=== PATIENT | female | born 1960 | race Caucasian/White ===

== ENCOUNTER 2016-08-27 08:07 | Day surgery (SDC) | payer OTHER ==
[~2016-08-27 08:07] MED LIST: DIPRIVAN 200 MG/20 ML IV ONE; Kenalog-40 IM ONE; Sensorcaine 0.25% 10 ML IJ ONE; Xylocaine 1% Vial 30 ML PF IJ ONE
[2016-08-27] MEDS ORDERED: Lactated Ringers 1,000 ML IV ONE (08:09)
[2016-08-27] MEDS ORDERED: Lactated Ringers 1,000 ML IV SCH (08:30)
[2016-08-27 08:40] VITALS: BP 161/124; PULSE 81; O2SAT 98
--- NOTE | 2016-08-27 12:43 | XRAY ---
Indication: Left hip injection. Intraoperative fluoroscopy was provided for 25 seconds. Single frontal digital spot image of the left hip demonstrates needle tip projecting over the superior femur head. Small amount of contrast injected for needle tip placement. Correlate with intraoperative findings/report.
--- NOTE | 2016-08-27 13:39 | XRAY ---
25 seconds fluoroscopy time in surgery for left hip injection.
== END 2016-08-27 10:36 | disposition home or self-care (01) ==
LOC: SDC-PAIN 08:07
PROVIDERS: ATTEND Pain Medicine Interventional Pain Medicine
DX: M54.16 Radiculopathy, lumbar region (principal); M48.06 Spinal stenosis, lumbar region; M70.62 Trochanteric bursitis, left hip; Z79.891 Long term (current) use of opiate analgesic
CPT/HCPCS: 20610; 73501; 77002; J2001; J2704; J3301; Q9967

== ENCOUNTER 2016-10-17 17:46 | Emergency (ER) | payer OTHER ==
[2016-10-17] MEDS ORDERED: Compazine 10 MG/2 ML IV ONE (18:14)
[2016-10-17] MEDS ORDERED: Sodium Chloride 0.9% 1000 ML 1,000 ML IV SCH (18:15)
[2016-10-17] MEDS ORDERED: Sodium Chloride 0.9% 500 ML 500 ML IV ONE (18:16)
--- NOTE | 2016-10-17 18:22 | ERPHSYRPT ---
- History of Present Illness Time Seen by Provider: 10/17/16 18:05 Source: patient, family () Exam Limitations: no limitations Patient Subjective Stated Complaint: headache since yesterday. states feels pressure in eyes and back of head. also having some nausea. Triage Nursing Assessment: ambulated to room per self without difficulty. skin w/d, color normal, resp easy. 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 has some droop to left side of mouth when smiling. aleksandra Physician History: patient presents with worst MURRY of life; used to have migraines; this is worse; started yesterday; 04/14; frontal sinuses; retro bulbar on left and post occiput ; light bothers; associated with N& dry heaves; no trauma; no travel ; no exposures; some increased stress as kids and grand kids moved back home.no fever or chills; otherwise healthy; no changes in meds; has hx of hayfever and allergies; no relief with over the counter meds; has an asymetrical smile which states is old Timing/Duration: yesterday (onset at rest), gradual onset, worse (today) Quality: aching, fullness, pressure, throbbing Head Pain Location: frontal (retrobulbar left), occipital Severity of Pain-Max: severe Severity of Pain-Current: severe Recent Head Trauma: no recent headache/trauma Modifying Factors: Improves With: exposure to light (exacerbates) Associated Symptoms: nausea/vomiting, sensitive to light Previous symptoms: different symptoms Allergies/Adverse Reactions: No Known Drug Allergies Allergy (Verified 10/17/16 17:59) Home Medications: Fluoxetine HCl [Prozac] 20 mg PO BID 10/23/15 [History] Buspirone HCl [Buspar] 10 mg PO BID 04/17/16 [History] Diclofenac Sodium [Voltaren] 75 mg PO BID 04/17/16 [History] Gabapentin 400 mg [Neurontin 400 MG] 400 mg PO TID 04/17/16 [History] Hx Tetanus, Diphtheria Vaccination/Date Given: No Hx Influenza Vaccination/Date Given: No Hx Pneumococcal Vaccination/Date Given: No - Review of Systems Constitutional: No Symptoms Eyes: Photophobia, No Eye Pain, No Eye Redness, No Itchy, No Vision Changes, No Double Vision Ears, Nose, & Throat: No Symptoms, Other (sinus pressure) Respiratory: No Cough, No Dyspnea, No Wheezing Cardiac: No Chest Pain, No Palpitations, No Syncope Abdominal/Gastrointestinal: Nausea, Vomiting, No Abdominal Pain, No Diarrhea, No Constipation Genitourinary Symptoms: No Symptoms Musculoskeletal: Arthralgias, No Back Pain, No Neck Pain, No Fall, No Injury Skin: No Symptoms Neurological: Headache, No Dizziness, No Focal Weakness, No Paralysis, No Parasthesia, No Seizure, No Sensory Changes, No Speech Changes, No Vertigo Psychological: No Symptoms Endocrine: No Symptoms Hematologic/Lymphatic: No Symptoms Immunological/Allergic: No Symptoms - Past Medical History Pertinent Past Medical History: Yes Neurological History: No Pertinent History Cardiac History: No Pertinent History Respiratory History: No Pertinent History Endocrine Medical History: No Pertinent History Musculoskeletal History: Degenerative Disk Disease Psycho-Social History: Depression Other Medical History: L hip and knee OA - Past Surgical History Past Surgical History: Yes Female Surgical History: Section Other Surgical History: gastric bypass - Social History Smoking Status: Never smoker Exposure to second hand smoke: Yes Alcohol Use: None Drug Use: none Patient Lives Alone: No Significant Family History: no pertinent family hx - Female History Hx Now: No - Nursing Vital Signs Nursing Vital Signs: Initial Vital Signs Temperature 97.3 F Temperature Source Oral Pulse Rate 80 Respiratory Rate 161 Blood Pressure [] 124/74 Pain Intensity 5 - Physical Exam General Appearance: moderate distress (bad headache), alert Eye Exam: PERRL/EOMI, eyes nml inspection, photophobia, other (fundi benign; no photophobia; ) Ears, Nose, Throat Exam: normal ENT inspection, TMs normal, pharynx normal, moist mucous membranes, other (sinus transillluminate poorly and tender to palpation) Neck Exam: normal inspection, non-tender, supple, full range of motion, No meningismus, No carotid bruit, No JVD, No lymphadenopathy, No thyromegaly Respiratory Exam: normal breath sounds, lungs clear, airway intact, No chest tenderness, No respiratory distress, No crackles/rales, No rhonchi, No wheezing Cardiovascular Exam: regular rate/rhythm, normal heart sounds, normal peripheral pulses, capillary refill 2-3 sec, No murmur Gastrointestinal/Abdominal Exam: soft, normal bowel sounds, No tenderness, No guarding, No rebound, No organomegaly Back Exam: normal inspection, normal range of motion, No CVA tenderness, No vertebral tenderness, No rash Extremity Exam: normal inspection, normal range of motion, pedal edema (chronic) Mental Status Exam: alert, oriented x 3, 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 Exam: normal hearing, normal speech, PERRL, tongue midline, No facial droop , No facial paresthesias, No facial weakness Coordination/Gait Exam: normal finger to nose, normal gait, normal cerebellar function, negative Romberg's sign Motor/Sensory Exam: no motor deficit, no sensory deficit, no pronator drift DTR Exam: knee (R): 4+, knee (L): 4+ Skin Exam: normal color, warm, dry, No rash, No petechiae Lymphatic Exam: No adenopathy SpO2 Interpretation: normal SpO2: 96 Oxygen Delivery: Room Air - Course Nursing assessment & vital signs reviewed: Yes - CT Exams Head CT Interpretation: Negative, Tele-radiologist Report, No/Intracranial Hemorrhag Ordered Tests: Active Orders 24 hr Category Date Time Status IV Insertion STAT Care 10/17/16 18:14 Active Oxygen-ED Only VENTI-MASK 40% Care 10/17/16 19:03 Active Pulse Oximetry (ED) STAT Care 10/17/16 18:14 Active HEAD WITHOUT CONTRAST [CT] Stat Exams 10/17/16 18:14 Taken BMP Stat Lab 10/17/16 18:38 Completed CBC W DIFF Stat Lab 10/17/16 18:38 Completed Medication Summary Generic Name Dose Route Start Last Admin Trade Name Freq PRN Reason Stop Dose Admin Sodium Chloride 1,000 mls @ 100 mls/hr 10/17/16 18:15 10/17/16 18:45 Sodium Chloride 0.9% 1000 Ml IV 11/16/16 18:14 100 mls/hr .Q10H LAURA Administration Discontinued Medications Generic Name Dose Route Start Last Admin Trade Name Freq PRN Reason Stop Dose Admin Hydromorphone HCl 1 mg 10/17/16 19:06 10/17/16 19:13 Hydromorphone 1 Mg/Ml Ampule IV 10/17/16 19:07 1 mg STAT ONE Administration Hydromorphone HCl Confirm 10/17/16 19:10 Hydromorphone 1 Mg/Ml Ampule Administered 10/17/16 19:11 Dose 1 mg .ROUTE .STK-MED ONE Sodium Chloride 500 mls @ 500 mls/hr 10/17/16 18:16 10/17/16 18:45 Sodium Chloride 0.9% 500 Ml IV 10/17/16 19:15 500 mls/hr .Q1H ONE Administration Prochlorperazine Edisylate 10 mg 10/17/16 18:14 10/17/16 18:45 Compazine 10 Mg/2 Ml IV 10/17/16 18:15 10 mg STAT ONE Administration Prochlorperazine Edisylate Confirm 10/17/16 18:41 Compazine 10 Mg/2 Ml Administered 10/17/16 18:42 Dose 10 mg .ROUTE .STK-MED ONE Lab/Rad Data: Laboratory Result Diagrams 10/17/16 18:38 10/17/16 18:38 Laboratory Results 10/17/16 10/17/16 Range/Units 18:38 18:38 WBC 9.5 (4.0-10.5) K/mm3 RBC 4.25 (4.1-5.4) M/mm3 Hgb 12.9 (12.0-16.0) gm/dl Hct 40.4 (35-47) % MCV 95.1 (78-100) fl MCH 30.4 (26-32) pg MCHC 31.9 L (32-36) g/dl RDW 14.2 H (11.5-14.0) % Plt Count 340 (150-450) K/mm3 MPV 9.2 (6-9.5) fl Gran % 70.9 H (36.0-66.0) % Lymphocytes % 19.6 L (24.0-44.0) % Monocytes % 8.4 (0.0-12.0) % Eosinophils % 0.8 (0.00-5.0) % Basophils % 0.3 (0.0-0.4) % Basophils # 0.03 (0-0.4) Sodium 138 (136-145) mEq/L Potassium 3.9 (3.5-5.1) mEq/L Chloride 104 (98-107) mEq/L Carbon Dioxide 25.8 (21-32) mEq/L Anion Gap 12.0 (5-15) MEQ/L BUN 14 (9-20) mg/dL Creatinine 0.87 (0.55-1.30) mg/dl Estimated GFR > 60 ML/MIN Glucose 106 (70-110) MG/DL Calcium 9.1 (8.5-10.1) mg/dL reviewed - Progress Progress: improved (after meds), re-examined (after CT and meds ) Air Movement: good Progress Note: 10/17/16 18:26 at the bedside; will start IV; place on hi flow O2, give fluids; check labs and CT ; medicate and recheck 10/17/16 19:02 recheck and Nausea starting to improve; no change in MURRY; CT repeorted as negative; labs all wnl; at bedside; will place on hi flow O2 and recheck ; if no chane will medicate for pain 10/17/16 19:36 pain now 5/10; will monitor and recheck 10/17/16 20:04 recheck and much improved; pain now 2-3 /10 and ready to go home; findings discussed; instructions given Blood Culture(s) Obtained: No Antibiotics given: No Counseled pt/family regarding: lab results, diagnosis, need for follow-up, rad results - Departure Time of Disposition: 20:04 Departure Disposition: Home Clinical Impression: Headache Condition: Stable Critical Care Time: No Referrals: CHRIS PITTS [Primary Care Provider] - Instructions: Headache Additional Instructions: Follow-up with family doctor as directed. Call for appointment. Return if any problems. If you smoke please stop. Call or follow up with your family doctor for assistance if you need it to stop. Please wear your seatbelt when driving. Have a nice day. Thank you for allowing us to participate in your care today. :o) Dr Chino Bowling
[2016-10-17] MEDS ORDERED: Sodium Chloride 0.9% 1000 ML 1,000 ML ONE (18:41)
[2016-10-17] MEDS ORDERED: Compazine 10 MG/2 ML ONE (18:41)
[2016-10-17 18:43] LABS: BASOPHIL % 0.3 % (0.0-0.4); Eosinophil % 0.8 % (0.00-5.0); Granulocytes % 70.9 % (36.0-66.0); Lymphocytes % 19.6 % (24.0-44.0); Mean Cell Volume 95.1 fl (78-100); Mean Corpuscular Hemoglobin 30.4 pg (26-32); Mean Platelet Volume 9.2 fl (6-9.5); Monocytes % 8.4 % (0.0-12.0); Platelet Count 340 K/mm3 (150-450); Red Blood Count 4.25 M/mm3 (4.1-5.4); Red Cell Distribution Width 14.2 % (11.5-14.0); White Blood Count 9.5 K/mm3 (4.0-10.5)
[2016-10-17 18:53] LABS: BLOOD UREA NITROGEN 14 mg/dL (9-20); CHLORIDE 104 mEq/L (98-107); Carbon Dioxide 25.8 mEq/L (21-32); Glucose 106 MG/DL (70-110); Potassium 3.9 mEq/L (3.5-5.1); SODIUM 138 mEq/L (136-145)
[2016-10-17] MEDS ORDERED: Hydromorphone 1 mg/ml Ampule IV ONE (19:06)
[2016-10-17] MEDS ORDERED: Hydromorphone 1 mg/ml Ampule ONE (19:10)
[2016-10-17 19:50] VITALS: BP 124/74; PULSE 80
[2016-10-17 20:05] VITALS: O2SAT 96
--- NOTE | 2016-10-17 21:34 | XRAY ---
Indication: Severe headache. Multiple contiguous axial images obtained through the head without contrast. Comparison: September 22, 2006. Again normal appearing brain parenchyma, ventricles, and bony calvarium. Visualized paranasal sinuses and mastoid air cells are pneumatized and clear. Impression: Stable normal CT head without contrast exam. CTDI 70.55
== END 2016-10-17 20:17 | disposition home or self-care (01) ==
LOC: ED 17:46
DX: R51 Headache (principal); R11.2 Nausea with vomiting, unspecified; H53.9 Unspecified visual disturbance; Z79.899 Other long term (current) drug therapy
CPT/HCPCS: 36000; 36415; 70450; 80048; 85025; 96360; 96361; 96374; 96375; 99284; 99285; J1170

== ENCOUNTER 2016-10-18 13:08 | Emergency (ER) | payer OTHER ==
[2016-10-18] MEDS ORDERED: Compazine 10 MG/2 ML IV ONE (13:31)
[2016-10-18] MEDS ORDERED: TORAdol 30 mg Injection IV ONE (13:31)
[2016-10-18] MEDS ORDERED: Sodium Chloride 0.9% 1000 ML 1,000 ML IV STA (13:31)
[2016-10-18] MEDS ORDERED: BENADRYL 50 MG/ML IV ONE (13:31)
[2016-10-18 13:32] LABS: VBG BASE EXCESS 1.1 (-2.0-2.0); VBG CARBOXYHEMOGLOBIN 2.6 % T HGB (0.0-6.9); VBG HCO3- 23.6 meq/L (22-28); VBG HEMOGLOBIN 14.6; VBG O2 SATURATION 94.1 (95-100); VBG POTASSIUM 3.6 (3.5-5.1); VBG pH 7.49 (7.32-7.42)
[2016-10-18] MEDS ORDERED: DECADRON 10MG INJ. IV ONE (13:32)
[2016-10-18] MEDS ORDERED: TORAdol 30 mg Injection ONE (13:35)
[2016-10-18] MEDS ORDERED: DECADRON 10MG INJ. ONE (13:35)
[2016-10-18] MEDS ORDERED: BENADRYL 50 MG/ML ONE (13:35)
[2016-10-18] MEDS ORDERED: Sodium Chloride 0.9% 100 ML IVPB 100 ML IV ONE (13:35)
[2016-10-18] MEDS ORDERED: Compazine 10 MG/2 ML ONE (13:35)
[2016-10-18] MEDS ORDERED: Sodium Chloride 0.9% 1000 ML 1,000 ML ONE (13:36)
--- NOTE | 2016-10-18 13:40 | ERPHSYRPT ---
- History of Present Illness Time Seen by Provider: 10/18/16 13:12 Source: patient Patient Subjective Stated Complaint: PT REPORTS N/V/D-STATES SHE HAS ONLY DRY HEAVED TODAY-REPROTS 2 EPISODES OF DIARRHEA-STATES SHE WAS TX LAST NIGHT IN ED FOR HEADACHE-STATES HEADACHE IS BETTER TODAY-REPORTS TINLGING TO BOTH HANDS Triage Nursing Assessment: PT PALE WARM ET DRY-A & O X 3-RESP NONLAOBRED-PUPILS RESPONSIVE-UNEVEN SMILE THAT PT REPORTS IS NORMAL FOR HER-MOVING ALL EXTREMITIES WITH EASE-ABD SOFT ET TENDER TO PALP-DENIES REBOUND TENDERNESS Physician History: CC: nausea hx: 56 y/o patient with hx of arthritis pain syndrome, headaches. Last night in ER with gradual onset severe headache. She had CT head which was neg and normal labs. She improved with O2, compazine, dilaudid. She went home well and went to sleep. Awoke at 1AM and the headache was returning. She has continues slight headache but has dry heaves and mild diarrhea. No fever. Tingling in all extremities. No neck pain. Last headache of this severity was one year. Timing/Duration: yesterday Severity: severe Allergies/Adverse Reactions: No Known Drug Allergies Allergy (Verified 10/18/16 13:18) Home Medications: Fluoxetine HCl [Prozac] 20 mg PO BID 10/23/15 [History] Buspirone HCl [Buspar] 10 mg PO BID 04/17/16 [History] Diclofenac Sodium [Voltaren] 75 mg PO BID 04/17/16 [History] Gabapentin 400 mg [Neurontin 400 MG] 400 mg PO TID 04/17/16 [History] Hx Tetanus, Diphtheria Vaccination/Date Given: No Hx Influenza Vaccination/Date Given: No Hx Pneumococcal Vaccination/Date Given: No Immunizations Up to Date: Yes - Review of Systems Constitutional: Malaise, No Fever Eyes: Photophobia, No Vision Changes Respiratory: No Cough, No Dyspnea Cardiac: No Chest Pain Abdominal/Gastrointestinal: Nausea, Vomiting, Diarrhea, No Abdominal Pain Skin: No Rash Neurological: Headache, Parasthesia (all extremities), No Focal Weakness All Other Systems: Reviewed and Negative - Past Medical History Pertinent Past Medical History: Yes Neurological History: No Pertinent History Cardiac History: No Pertinent History Respiratory History: No Pertinent History Endocrine Medical History: No Pertinent History Musculoskeletal History: Degenerative Disk Disease Psycho-Social History: Depression Other Medical History: L hip and knee OA - Past Surgical History Past Surgical History: Yes Female Surgical History: Section Other Surgical History: gastric bypass - Social History Smoking Status: Never smoker Exposure to second hand smoke: Yes Alcohol Use: None Drug Use: none Patient Lives Alone: No Significant Family History: no pertinent family hx - Female History Hx Now: No - Nursing Vital Signs Nursing Vital Signs: Initial Vital Signs Pulse Rate 88 Respiratory Rate 22 Blood Pressure [Right Arm] 168/80 Pain Intensity 8 - Physical Exam General Appearance: alert Eye Exam: PERRL/EOMI Ears, Nose, Throat Exam: normal ENT inspection, moist mucous membranes Neck Exam: normal inspection, non-tender, supple, No meningismus Respiratory Exam: normal breath sounds, lungs clear Cardiovascular Exam: regular rate/rhythm, No murmur Gastrointestinal/Abdomen Exam: soft, No tenderness, No distention Back Exam: normal inspection, No vertebral tenderness Extremity Exam: normal inspection, normal range of motion Neurologic Exam: alert, oriented x 3, 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, 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 IV 10/18/16 13:33 10 mg STAT ONE Administration Dexamethasone Sodium Phosphate Confirm 10/18/16 13:35 Decadron 10mg Inj. Administered 10/18/16 13:36 Dose 10 mg .ROUTE .STK-MED ONE Diphenhydramine HCl 25 mg 10/18/16 13:31 10/18/16 13:47 Benadryl 50 Mg/Ml IV 10/18/16 13:32 25 mg STAT ONE Administration Diphenhydramine HCl Confirm 10/18/16 13:35 Benadryl 50 Mg/Ml Administered 10/18/16 13:36 Dose 50 mg .ROUTE .STK-MED ONE Sodium Chloride 1,000 mls @ 999 mls/hr 10/18/16 13:31 10/18/16 13:47 Sodium Chloride 0.9% 1000 Ml IV 10/18/16 14:31 999 mls/hr .Q1H1M STA Administration Sodium Chloride Confirm 10/18/16 13:35 Sodium Chloride 0.9% 100 Ml Ivpb Administered 10/18/16 13:36 Dose 100 mls @ ud IV .STK-MED ONE Sodium Chloride Confirm 10/18/16 13:36 Sodium Chloride 0.9% 1000 Ml Administered 10/18/16 13:37 Dose 1,000 mls @ ud .ROUTE .STK-MED ONE Ketorolac Tromethamine 30 mg 10/18/16 13:31 10/18/16 13:48 Toradol 30 Mg Injection IV 10/18/16 13:32 30 mg STAT ONE Administration Ketorolac Tromethamine Confirm 10/18/16 13:35 Toradol 30 Mg Injection Administered 10/18/16 13:36 Dose 30 mg .ROUTE .STK-MED ONE Prochlorperazine Edisylate 10 mg 10/18/16 13:31 10/18/16 13:50 Compazine 10 Mg/2 Ml IV 10/18/16 13:32 10 mg STAT ONE Administration Prochlorperazine Edisylate Confirm 10/18/16 13:35 Compazine 10 Mg/2 Ml Administered 10/18/16 13:36 Dose 10 mg .ROUTE .STK-MED ONE Lab/Rad Data: Laboratory Results 10/18/16 Range/Units 13:30 VBG pH 7.49 H (7.32-7.42) VBG pCO2 at Pat Temp 31 L (42-55) mm/Hg VBG pO2 at Pat Temp 55 H (25-40) mm/Hg VBG HCO3 23.6 (22-28) meq/L VBG O2 Sat (Consuelo) 94.1 L (95-100) VBG Base Excess 1.1 (-2.0-2.0) VBG Hemoglobin 14.6 VBG Carboxyhemoglobin 2.6 (0.0-6.9) % T HGB POC Potassium 3.6 (3.5-5.1) - Progress Progress Note: 10/18/16 13:40 temp 98.7 10/18/16 14:39 She is feeling much better. IVF bolus, benadryl, compazine, toradol given. IVPB decadron given in hopes of preventing rebound. She is not interested in further testing including LP which was discussed. She is smiling and will be released with instructions. Counseled pt/family regarding: lab results, diagnosis, need for follow-up - Departure Time of Disposition: 14:40 Departure Disposition: Home Clinical Impression: Headache Qualifiers: Headache type: unspecified Headache chronicity pattern: acute headache Intractability: intractable Qualified Code(s): R51 - Headache Condition: Stable Critical Care Time: No Referrals: CHRIS PITTS [Primary Care Provider] - Instructions: Headache Additional Instructions: HEADACHE 1. After discharge from the emergency department, you should rest at home in a cool, dark, quiet place for 12-24 hours. 2. If any of the following signs or symptoms are noticed, you should be re- evaluated right away: A. Visual changes B. Stiff Neck C. Change in quality or location of pain D. Fever E. Recurrent vomiting 3. If pain medications were prescribed or given, they may cause drowsiness. Rest and no driving today. Stay with family today. Return for fever, confusion, problems.
[2016-10-18 14:10] VITALS: BP 168/80; PULSE 88
[2016-10-18 14:39] VITALS: O2SAT 96
== END 2016-10-18 14:51 | disposition home or self-care (01) ==
LOC: ED 13:08
DX: R51 Headache (principal); R11.2 Nausea with vomiting, unspecified; R19.7 Diarrhea, unspecified
CPT/HCPCS: 36000; 82805; 96360; 96365; 96374; 96375; 99284; J1100; J1200; J1885

== ENCOUNTER 2017-03-09 09:56 | Emergency (ER) | payer OTHER ==
[2017-03-09] MEDS ORDERED: Sodium Chloride 0.9% 1000 ML 1,000 ML IV STA (10:09)
[2017-03-09] MEDS ORDERED: Zofran 4 MG/2 ML VIAL IV ONE (10:14)
[2017-03-09] MEDS ORDERED: PROTONIX 40 MG IV IV ONE ×2 (10:14→10:18)
[2017-03-09] MEDS ORDERED: Hydromorphone 1 mg/ml Ampule IV ONE (10:14)
[2017-03-09] MEDS ORDERED: Sodium Chloride 0.9% 1000 ML 1,000 ML ONE (10:18)
[2017-03-09] MEDS ORDERED: Zofran 4 MG/2 ML VIAL ONE (10:18)
[2017-03-09] MEDS ORDERED: Hydromorphone 1 mg/ml Ampule ONE (10:18)
--- NOTE | 2017-03-09 10:18 | ERPHSYRPT ---
- History of Present Illness Time Seen by Provider: 03/09/17 10:08 Historian: patient Patient Subjective Stated Complaint: NAUSEA AND VOMITTING X 3 DAYS WITH BAKC PAIN AND PAIN IN STERNUM FROM VOMITTING. SOME DIARRHEA Triage Nursing Assessment: PT ALERT NAD ORIENTEDX3, AMBULATES WELL, GAIT IS STEADY, PUPILS PERRLA3, LUNGS SOUND CLEAR, BOWEL SOUNDS X4, ABDOMEN NON TENDER . BRUISING FROM OLD INJURY TO RIGHT LARGE TOE Physician History: CC: vomiting Hx: 56 y/o s/p remote bariatric surgery at [facility]. She has 3 day hx of vomiting, epigastric abd pain, minimal diarrhea. Normal urination. No fever or chills. Sharp pain in epigastrum. Worse pain so came to ER. Pain is moderately severe. Timing/Duration: day(s) (3) Allergies/Adverse Reactions: No Known Drug Allergies Allergy (Verified 10/18/16 13:18) Home Medications: Fluoxetine HCl [Prozac] 20 mg PO BID 10/23/15 [History] Buspirone HCl [Buspar] 10 mg PO BID 04/17/16 [History] Diclofenac Sodium [Voltaren] 75 mg PO BID 04/17/16 [History] Gabapentin 400 mg [Neurontin 400 MG] 400 mg PO TID 04/17/16 [History] Meloxicam 15 mg [Meloxicam 15 MG] 15 mg PO DAILY 03/09/17 [History] Hx Tetanus, Diphtheria Vaccination/Date Given: Yes Hx Influenza Vaccination/Date Given: No Hx Pneumococcal Vaccination/Date Given: No Immunizations Up to Date: Yes - Review of Systems Constitutional: No Fever, No Chills Eyes: No Symptoms Ears, Nose, & Throat: No Symptoms Respiratory: No Cough, No Dyspnea Cardiac: No Chest Pain Abdominal/Gastrointestinal: Abdominal Pain, Nausea, Vomiting, Diarrhea Genitourinary Symptoms: No Dysuria Musculoskeletal: Joint Pain (arthritis), No Back Pain Skin: No Rash Neurological: No Focal Weakness, No Headache, No Parasthesia All Other Systems: Reviewed and Negative - Past Medical History Pertinent Past Medical History: Yes Neurological History: Migraines Cardiac History: No Pertinent History Respiratory History: No Pertinent History Endocrine Medical History: No Pertinent History Musculoskeletal History: Arthritis Psycho-Social History: Depression Other Medical History: LBP, R hip pain, neck pain, nerves cauterized in L-spine - Past Surgical History Past Surgical History: Yes Female Surgical History: Section Other Surgical History: gastric bypass - Social History Smoking Status: Never smoker Exposure to second hand smoke: Yes Alcohol Use: None Drug Use: none Patient Lives Alone: No Significant Family History: no pertinent family hx - Female History Hx Now: No - Nursing Vital Signs Nursing Vital Signs: Initial Vital Signs Temperature 98.2 F 03/09/17 09:56 Pulse Rate 91 H 03/09/17 09:56 Respiratory Rate 18 03/09/17 09:56 Blood Pressure 143/86 03/09/17 09:56 O2 Sat by Pulse Oximetry 97 03/09/17 09:56 Pain Scale Pain Intensity 8 - Physical Exam General Appearance: alert Eye Exam: PERRL/EOMI Ears, Nose, Throat Exam: normal ENT inspection, moist mucous membranes Neck Exam: normal inspection, non-tender, supple Respiratory Exam: normal breath sounds, lungs clear Cardiovascular Exam: regular rate/rhythm Gastrointestinal/Abdomen Exam: soft, tenderness (epigastrum), guarding, No distention, No mass Back Exam: normal inspection, No CVA tenderness Extremity Exam: normal range of motion, pedal edema Neurologic Exam: alert, oriented x 3, cooperative, sensation nml, No motor deficits Skin Exam: warm, dry, No rash SpO2 Interpretation: normal SpO2: 97 Oxygen Delivery: Room Air - Course Nursing assessment & vital signs reviewed: Yes EKG Interpreted by Me: RATE (75), Sinus Rhythm, NORMAL AXIS, NORMAL INTERVALS ( QTc 425), NORMAL QRS, NORMAL ST-T Ordered Tests: Active Orders 24 hr Category Date Time Status EKG-ER Only STAT Care 03/09/17 10:14 Active IV Insertion STAT Care 03/09/17 10:09 Active NPO (ED) STAT Care 03/09/17 10:14 Active ABDOMEN AND PELVIS W CONTRAST [CT] Stat Exams 03/09/17 10:14 Taken CBC W DIFF Stat Lab 03/09/17 10:09 Completed CMP Stat Lab 03/09/17 10:09 Completed CULTURE,URINE Stat Lab 03/09/17 11:45 Received LIPASE Stat Lab 03/09/17 10:09 Completed Lactic Acid Stat Lab 03/09/17 10:20 Completed UA W/ MICROSCOPIC Stat Lab 03/09/17 11:45 Completed Medication Summary Discontinued Medications Generic Name Dose Route Start Last Admin Trade Name Freq PRN Reason Stop Dose Admin Hydromorphone HCl 1 mg 03/09/17 10:14 03/09/17 10:28 Hydromorphone 1 Mg/Ml Ampule IV 03/09/17 10:15 1 mg STAT ONE Administration Hydromorphone HCl Confirm 03/09/17 10:18 Hydromorphone 1 Mg/Ml Ampule Administered 03/09/17 10:19 Dose 1 mg .ROUTE .STK-MED ONE Sodium Chloride 1,000 mls @ 999 mls/hr 03/09/17 10:09 03/09/17 10:28 Sodium Chloride 0.9% 1000 Ml IV 03/09/17 11:09 999 mls/hr .Q1H1M STA Administration Sodium Chloride Confirm 03/09/17 10:18 Sodium Chloride 0.9% 1000 Ml Administered 03/09/17 10:19 Dose 1,000 mls @ ud .ROUTE .STK-MED ONE Ondansetron HCl 4 mg 03/09/17 10:14 03/09/17 10:27 Zofran 4 Mg/2 Ml Vial IV 03/09/17 10:15 4 mg STAT ONE Administration Ondansetron HCl Confirm 03/09/17 10:18 Zofran 4 Mg/2 Ml Vial Administered 03/09/17 10:19 Dose 4 mg .ROUTE .STK-MED ONE Pantoprazole Sodium 40 mg 03/09/17 10:14 03/09/17 10:28 Protonix 40 Mg Iv IV 03/09/17 10:15 40 mg STAT ONE Administration Pantoprazole Sodium Confirm 03/09/17 10:18 Protonix 40 Mg Iv Administered 03/09/17 10:19 Dose 40 mg IV .STK-MED ONE Lab/Rad Data: Laboratory Result Diagrams 03/09/17 10:09 03/09/17 10:09 Laboratory Results 03/09/17 03/09/17 03/09/17 Range/Units 11:45 10:20 10:09 WBC (4.0-10.5) K/mm3 RBC (4.1-5.4) M/mm3 Hgb (12.0-16.0) gm/dl Hct (35-47) % MCV (78-100) fl MCH (26-32) pg MCHC (32-36) g/dl RDW (11.5-14.0) % Plt Count (150-450) K/mm3 MPV (6-9.5) fl Gran % (36.0-66.0) % Lymphocytes % (24.0-44.0) % Monocytes % (0.0-12.0) % Eosinophils % (0.00-5.0) % Basophils % (0.0-0.4) % Basophils # (0-0.4) Sodium 141 (136-145) mEq/L Potassium 3.9 (3.5-5.1) mEq/L Chloride 105 (98-107) mEq/L Carbon Dioxide 27.0 (21-32) mEq/L Anion Gap 12.8 (5-15) MEQ/L BUN 11 (9-20) mg/dL Creatinine 0.78 (0.55-1.30) mg/dl Estimated GFR > 60 ML/MIN Glucose 102 (70-110) MG/DL Lactic Acid 1.4 (0.4-2.0) Calcium 9.4 (8.5-10.1) mg/dL Total Bilirubin 0.40 (0.2-1.0) mg/dL AST 22 (15-37) U/L ALT 23 (12-78) U/L Alkaline Phosphatase 120 H (46-116) U/L Serum Total Protein 7.5 (6.4-8.2) gm/dL Albumin 3.9 (3.4-5.0) g/dL Lipase 108 (73-393) U/L Ur Collection Type CLEAN CATCH Urine Color YELLOW (YELLOW) Urine Appearance CLEAR (CLEAR) Urine pH 7.0 (5-6) Ur Specific [place] 1.005 (1.005-1.025) Urine Protein NEGATIVE (Negative) Urine Ketones NEGATIVE (NEGATIVE) Urine Blood 5-10 (0-5) Javier/ul Urine Nitrite NEGATIVE (NEGATIVE) Urine Bilirubin NEGATIVE (NEGATIVE) Urine Urobilinogen NORMAL (0-1) mg/dL Ur Leukocyte Esterase 1+ (NEGATIVE) Urine Microscopic RBC 2-5 (0-2) /HPF Urine Microscopic WBC 2-5 (0-5) /HPF Ur Epithelial Cells FEW (FEW) /HPF Urine Bacteria FEW (NEGATIVE) /HPF Urine Mucus SLIGHT (NEGATIVE) /HPF Urine Glucose NEGATIVE (NEGATIVE) mg/dL Specimen Received 03/09/17 1250 03/09/17 Range/Units 10:09 WBC 9.9 (4.0-10.5) K/mm3 RBC 4.62 (4.1-5.4) M/mm3 Hgb 14.4 (12.0-16.0) gm/dl Hct 44.0 (35-47) % MCV 95.2 (78-100) fl MCH 31.2 (26-32) pg MCHC 32.7 (32-36) g/dl RDW 13.3 (11.5-14.0) % Plt Count 300 (150-450) K/mm3 MPV 9.3 (6-9.5) fl Gran % 71.6 H (36.0-66.0) % Lymphocytes % 17.5 L (24.0-44.0) % Monocytes % 8.3 (0.0-12.0) % Eosinophils % 2.4 (0.00-5.0) % Basophils % 0.2 (0.0-0.4) % Basophils # 0.02 (0-0.4) Sodium (136-145) mEq/L Potassium (3.5-5.1) mEq/L Chloride (98-107) mEq/L Carbon Dioxide (21-32) mEq/L Anion Gap (5-15) MEQ/L BUN (9-20) mg/dL Creatinine (0.55-1.30) mg/dl Estimated GFR ML/MIN Glucose (70-110) MG/DL Lactic Acid (0.4-2.0) Calcium (8.5-10.1) mg/dL Total Bilirubin (0.2-1.0) mg/dL AST (15-37) U/L ALT (12-78) U/L Alkaline Phosphatase (46-116) U/L Serum Total Protein (6.4-8.2) gm/dL Albumin (3.4-5.0) g/dL Lipase (73-393) U/L Ur Collection Type Urine Color (YELLOW) Urine Appearance (CLEAR) Urine pH (5-6) Ur Specific [place] (1.005-1.025) Urine Protein (Negative) Urine Ketones (NEGATIVE) Urine Blood (0-5) Javier/ul Urine Nitrite (NEGATIVE) Urine Bilirubin (NEGATIVE) Urine Urobilinogen (0-1) mg/dL Ur Leukocyte Esterase (NEGATIVE) Urine Microscopic RBC (0-2) /HPF Urine Microscopic WBC (0-5) /HPF Ur Epithelial Cells (FEW) /HPF Urine Bacteria (NEGATIVE) /HPF Urine Mucus (NEGATIVE) /HPF Urine Glucose (NEGATIVE) mg/dL Specimen Received - Progress Progress Note: 03/09/17 13:[address] Duncan Javier who advised consult patient's established surgeon. 03/09/17 13:59 CT shows upper limit size of appendix. Otherwise no acute. Called Dr Cowart bariatric surgeon who advised follow up in office tomorrow 12:30. Will stop NSAIDS and Rx protonix. Counseled pt/family regarding: lab results, diagnosis, need for follow-up, rad results - Departure Time of Disposition: 14:00 Departure Disposition: Home Clinical Impression: Epigastric abdominal pain, Status post bariatric surgery Condition: Stable Critical Care Time: No Referrals: DRISS SAHU [Primary Care Provider] - RENETTA COWART [NON-STAFF PHY W/O PRIVILEGES] - Instructions: Abdominal Pain-Adult Additional Instructions: ABDOMINAL PAIN 1. There are several different causes for abdominal pain, some of which may not be able to be identified on initial examination. 2. The important thing to remember is that bodily functions can change in a short period of time. If you notice any of the following symptoms, return to the emergency department or consult your doctor immediately: A. Worsening pain or no improvement in the next 12 hours. B. Increasing, severe abdominal pain C. Blood in stool D. Black stools E. Persistent vomiting F. Fever or chills or other symptoms Rx protonix. Stop all NSAIDS. See Dr Cowart at 12:30 tomorrow at [facility]. Take labs/xray CD with you. Prescriptions: PANTOPRAZOLE 40 mg Tablet [Protonix 40MG Tablet] 40 mg PO DAILY #30 tab
[2017-03-09 10:23] LABS: BASOPHIL % 0.2 % (0.0-0.4); Eosinophil % 2.4 % (0.00-5.0); Granulocytes % 71.6 % (36.0-66.0); Lymphocytes % 17.5 % (24.0-44.0); Mean Cell Volume 95.2 fl (78-100); Mean Corpuscular Hemoglobin 31.2 pg (26-32); Mean Platelet Volume 9.3 fl (6-9.5); Monocytes % 8.3 % (0.0-12.0); Platelet Count 300 K/mm3 (150-450); Red Blood Count 4.62 M/mm3 (4.1-5.4); Red Cell Distribution Width 13.3 % (11.5-14.0); White Blood Count 9.9 K/mm3 (4.0-10.5)
[2017-03-09 10:50] LABS: ALBUMIN 3.9 g/dL (3.4-5.0); ALKALINE PHOSPHATASE 120 U/L (46-116); ANION GAP 12.8 MEQ/L (5-15); BLOOD UREA NITROGEN 11 mg/dL (9-20); CHLORIDE 105 mEq/L (98-107); Glucose 102 MG/DL (70-110); LIPASE 108 U/L (73-393); Potassium 3.9 mEq/L (3.5-5.1); SGOT/AST 22 U/L (15-37); SGPT/ALT 23 U/L (12-78); SODIUM 141 mEq/L (136-145); Total Protein 7.5 gm/dL (6.4-8.2)
[2017-03-09 11:53] VITALS: BP 144/84; PULSE 76
[2017-03-09 12:04] LABS: Bilirubin NEGATIVE (NEGATIVE); COMPLETE URINE MICROSCOPIC? YES; Collection Type CLEAN CATCH; Glucose NEGATIVE (NEGATIVE); Leukocyte Esterase 1+ (NEGATIVE)
[2017-03-09 12:15] LABS: ADD URINE CULTURE? YES (NO); Bacteria FEW /HPF (NEGATIVE); Epithelial Cells FEW /HPF (FEW); Mucus SLIGHT /HPF (NEGATIVE)
[2017-03-09 13:34] VITALS: O2SAT 97
--- NOTE | 2017-03-09 21:04 | XRAY ---
Indication: Abdominal pain and vomiting. Multiple contiguous axial images obtained through the abdomen and pelvis using 80 cc Isovue 370 contrast only. Comparison: None Lung bases demonstrate mild bibasilar dependent atelectasis and a few calcified granulomas. Heart is not enlarged. Previous gastric bypass surgery. Noncontrasted stomach and bowel loops appear nonobstructed. Moderate diffuse scattered colonic fecal debris throughout. Normal appendix. No free fluid/air. 1 cm right mid renal cortical cyst. Remaining liver, gallbladder, pancreas, spleen, adrenal glands, kidneys, ureters, bladder, uterus, and aorta appear unremarkable. No pathologic retroperitoneal lymphadenopathy. Osseous structures intact with mild lumbar degenerative changes and mild dextroscoliosis. Impression: 1. Fecal stasis without obstruction. 2. Right renal cyst. 3. No acute intra-abdominal/pelvic abnormalities. Comment: Preliminary interpretation was made by C. No critical discrepancy. CTDI 15.67
== END 2017-03-09 14:32 | disposition home or self-care (01) ==
LOC: ED 09:56
DX: R10.13 Epigastric pain (principal); Z98.84 Bariatric surgery status; R10.9 Unspecified abdominal pain; R11.2 Nausea with vomiting, unspecified; R19.7 Diarrhea, unspecified
CPT/HCPCS: 36000; 36415; 74177; 80053; 81000; 83605; 83690; 85025; 87086; 93005; 96360; 96374; 96375; 99284; 99285; J1170; J2405

== ENCOUNTER 2018-01-03 18:15 | Emergency (ER) | payer OTHER ==
--- NOTE | 2018-01-03 19:46 | ERPHSYRPT ---
- History of Present Illness Time Seen by Provider: 01/03/18 19:37 Source: patient Patient Subjective Stated Complaint: states has had lots of swelling to both lower legs over the past four days. denies any injury or pain. denies sob and chest pain. denies any heart history. Triage Nursing Assessment: ambulated to room per self. skin w/d, color normal, resp nonlabored. 4+ pitting edema noted to bilateral lower legs. denies tenderness or injury. good pedal pulses bilaterally. some redness noted to left lateral foot. Physician History: The patient is a 57-year-old female with her daughter complaining that both of her lower legs have been swelling for about 3-4 days. Today the swelling is severe. She has some redness also on the outside of her left foot. She denies fever or chills. She denies shortness of breath. She is able to sleep on her side without difficulty. She has not changed her diet recently. She even complains that her fingers are slightly swollen. She does not have a history of congestive heart failure. Her past medical history is significant for depression, arthritis, and GERD. She's had bariatric surgery. Method of Injury: unknown Occurred: days ago (4) Quality: other (swelling) Severity of Pain-Max: none Severity of Pain-Current: none Modifying Factors: Improves With: nothing Associated Symptoms: none Allergies/Adverse Reactions: No Known Drug Allergies Allergy (Verified 10/18/16 13:18) Home Medications: Fluoxetine HCl [Prozac] 20 mg PO BID 10/23/15 [History] Buspirone HCl [Buspar] 10 mg PO BID 04/17/16 [History] Diclofenac Sodium [Voltaren] 75 mg PO BID 04/17/16 [History] Gabapentin 400 mg [Neurontin 400 MG] 400 mg PO TID 04/17/16 [History] Meloxicam 15 mg [Meloxicam 15 MG] 15 mg PO DAILY 03/09/17 [History] Hx Tetanus, Diphtheria Vaccination/Date Given: No Hx Influenza Vaccination/Date Given: Yes Hx Pneumococcal Vaccination/Date Given: No - Review of Systems Constitutional: No Fever, No Chills Eyes: No Symptoms Ears, Nose, & Throat: No Symptoms Respiratory: No Cough, No Dyspnea Cardiac: Edema (bilateral lower legs), No Chest Pain, No Syncope Abdominal/Gastrointestinal: No Abdominal Pain, No Nausea, No Vomiting, No Diarrhea Genitourinary Symptoms: No Dysuria Musculoskeletal: No Back Pain, No Neck Pain Skin: No Rash Neurological: No Dizziness, No Focal Weakness, No Sensory Changes Psychological: No Symptoms Endocrine: No Symptoms Hematologic/Lymphatic: No Symptoms Immunological/Allergic: No Symptoms All Other Systems: Reviewed and Negative - Past Medical History Pertinent Past Medical History: Yes Neurological History: No Pertinent History Cardiac History: Hypertension Respiratory History: No Pertinent History Endocrine Medical History: Other Musculoskeletal History: Osteoarthritis Psycho-Social History: Depression Other Medical History: 5 cysts on her thyroid, she is to have an ultrasound, back injections and rhizotomy 05/2017. - Past Surgical History Past Surgical History: Yes Female Surgical History: Section Other Surgical History: gastric bypass - Social History Smoking Status: Current every day smoker How long have you smoked: 4 Exposure to second hand smoke: No Alcohol Use: None Drug Use: none Patient Lives Alone: No Significant Family History: no pertinent family hx - Female History Hx Now: No - Nursing Vital Signs Nursing Vital Signs: Initial Vital Signs Temperature 98.1 F 01/03/18 18:33 Pulse Rate 64 01/03/18 18:33 Respiratory Rate 16 01/03/18 18:33 Blood Pressure 127/78 01/03/18 18:33 O2 Sat by Pulse Oximetry 99 01/03/18 18:33 Pain Scale Pain Intensity 0 - Physical Exam General Appearance: alert Eyes, Ears, Nose, Throat Exam: moist mucous membranes Neck Exam: non-tender, supple Cardiovascular/Respiratory Exam: chest non-tender, normal breath sounds, regular rate/rhythm, no respiratory distress Gastrointestinal/Abdominal Exam: non-tender, guarding Back Exam: normal inspection, No vertebral tenderness Hips Exam: bilateral: non-tender, normal inspection Legs Exam: bilateral leg: non-tender, swelling (severe edema) Knees Exam: bilateral knee: non-tender, normal inspection Ankle Exam: bilateral ankle: swelling (edema) Foot Exam: bilateral foot: swelling (edema) Neuro/Tendon Exam: normal sensation, normal motor functions Mental Status Exam: alert, oriented x 3, cooperative Skin Exam: normal color, warm, dry SpO2 Interpretation: normal SpO2: 99 Oxygen Delivery: Room Air - Radiology Exams Chest X-ray Interpretation: Interpreted by me, Negative Ordered Tests: Active Orders 24 hr Category Date Time Status ACCUCHECK [Accucheck] STAT Care 01/03/18 19:06 Active Barista STAT Care 01/03/18 19:53 Active IV Insertion STAT Care 01/03/18 19:06 Active Pulse Oximetry (ED) STAT Care 01/03/18 19:50 Active CHEST 2 VIEWS (PA AND LAT) Stat Exams 01/03/18 19:53 Taken CBC W DIFF Stat Lab 01/03/18 19:50 Completed CMP Stat Lab 01/03/18 19:50 Completed NT PRO BNP Stat Lab 01/03/18 19:50 Completed TROPONIN Q3H Lab 01/03/18 20:00 Ordered TROPONIN Q3H Lab 01/03/18 23:00 Ordered TROPONIN Q3H Lab 01/04/18 02:00 Ordered TROPONIN Q3H Lab 01/04/18 05:00 Ordered TROPONIN Q3H Lab 01/04/18 08:00 Ordered Medication Summary Discontinued Medications Generic Name Dose Route Start Last Admin Trade Name Freq PRN Reason Stop Dose Admin Furosemide 40 mg 01/03/18 19:50 01/03/18 20:00 Lasix 40 Mg/4 Ml IV 01/03/18 19:51 40 mg STAT ONE Administration Furosemide Confirm 01/03/18 19:59 Lasix 40 Mg/4 Ml Administered 01/03/18 20:00 Dose [address]-MED ONE Lab/Rad Data: Laboratory Result Diagrams 01/03/18 19:50 01/03/18 19:50 Laboratory Results 01/03/18 01/03/18 Range/Units 19:50 19:50 WBC 9.2 (4.0-10.5) K/mm3 RBC 4.05 L (4.1-5.4) M/mm3 Hgb 12.7 (12.0-16.0) gm/dl Hct 39.9 (35-47) % MCV 98.5 (78-100) fl MCH 31.3 (26-32) pg MCHC 31.8 L (32-36) g/dl RDW 13.5 (11.5-14.0) % Plt Count 306 (150-450) K/mm3 MPV 9.7 H (6-9.5) fl Gran % 59.7 (36.0-66.0) % Eos # (Auto) 0.22 (0-0.5) Absolute Lymphs (auto) 2.59 (1.0-4.6) Absolute Monos (auto) 0.86 (0.0-1.3) Lymphocytes % 28.3 (24.0-44.0) % Monocytes % 9.4 (0.0-12.0) % Eosinophils % 2.4 (0.00-5.0) % Basophils % 0.2 (0.0-0.4) % Absolute Granulocytes 5.47 (1.4-6.9) Basophils # 0.02 (0-0.4) Sodium 142 (137-145) mmol/L Potassium 4.3 (3.5-5.1) mmol/L Chloride 104 (98-107) mmol/L Carbon Dioxide 33 H (22-30) mmol/L Anion Gap 9.5 (5-15) MEQ/L BUN 16 (7-17) mg/dL Creatinine 0.71 (0.52-1.04) mg/dL Estimated GFR > 60.0 ML/MIN Glucose 81 (74-106) mg/dL Calcium 9.0 (8.4-10.2) mg/dL Total Bilirubin 0.30 (0.2-1.3) mg/dL AST 32 (14-36) U/L ALT 30 (0-35) U/L Alkaline Phosphatase 108 (38-126) U/L NT-Pro-B Natriuret Pep 95.8 (0-900) pg/mL Serum Total Protein 6.3 (6.3-8.2) g/dL Albumin 3.7 (3.5-5.0) g/dL - Progress Progress: improved Counseled pt/family regarding: lab results, diagnosis, need for follow-up, rad results - Departure Time of Disposition: 21:27 Departure Disposition: Home Clinical Impression: Edema, Cellulitis Condition: Stable Critical Care Time: No Referrals: DRISS SAHU [Primary Care Provider] - Additional Instructions: You have swelling of both of her lower legs and an infection causing redness to your left foot. You were given furosemide 40 mg by IV in the ER. You were given Keflex 500 mg orally in the ER. Take furosemide 20 mg 2 times a day for 3 days. Take Keflex 500 mg 4 times a day for 10 days. Follow-up with Dr. Andres in the morning. Prescriptions: Cephalexin Mh 500 mg [Keflex 500 mg] 1 cap PO QID #40 capsule Furosemide 20 mg PO BID #6 tablet
[2018-01-03] MEDS ORDERED: Lasix 40 MG/4 ML IV ONE (19:50)
[2018-01-03] MEDS ORDERED: Lasix 40 MG/4 ML ONE (19:59)
[2018-01-03 20:03] LABS: BASOPHIL % 0.2 % (0.0-0.4); Basophil (Absolute #) 0.02 (0-0.4); Eosinophil % 2.4 % (0.00-5.0); Eosinophil (Absolute #) 0.22 (0-0.5); Granulocyte Absolute (ANC) 5.47 (1.4-6.9); Granulocytes % 59.7 % (36.0-66.0); Hematocrit 39.9 % (35-47); Hemoglobin 12.7 gm/dl (12.0-16.0); Lymphocyte (Absolute #) 2.59 (1.0-4.6); Lymphocytes % 28.3 % (24.0-44.0); Mean Cell Volume 98.5 fl (78-100); Mean Corpuscular Hgb Concent. 31.8 g/dl (32-36); Mean Platelet Volume 9.7 fl (6-9.5); Monocyte (Absolute #) 0.86 (0.0-1.3); Monocytes % 9.4 % (0.0-12.0); Platelet Count 306 K/mm3 (150-450); Red Blood Count 4.05 M/mm3 (4.1-5.4); Red Cell Distribution Width 13.5 % (11.5-14.0); White Blood Count 9.2 K/mm3 (4.0-10.5)
[2018-01-03 20:14] LABS: Mean Corpuscular Hemoglobin 31.3 pg (26-32)
[2018-01-03 20:17] LABS: ALBUMIN 3.7 g/dL (3.5-5.0); ALKALINE PHOSPHATASE 108 U/L (38-126); ANION GAP 9.5 MEQ/L (5-15); BLOOD UREA NITROGEN 16 mg/dL (7-17); CHLORIDE 104 mmol/L (98-107); Carbon Dioxide 33 mmol/L (22-30); Creatinine 1 0.71 mg/dL (0.52-1.04); Glucose 81 mg/dL (74-106); Potassium 4.3 mmol/L (3.5-5.1); SGOT/AST 32 U/L (14-36); SGPT/ALT 30 U/L (0-35); SODIUM 142 mmol/L (137-145); Total Protein 6.3 g/dL (6.3-8.2)
[2018-01-03 20:26] LABS: NT PRO BNP 95.8 pg/mL (0-900)
[2018-01-03] MEDS ORDERED: KEFLEX 500 MG PO ONE (21:27)
[2018-01-03] MEDS ORDERED: KEFLEX 500 MG ONE (21:33)
[2018-01-03 22:06] VITALS: BP 139/86; PULSE 80; O2SAT 94
--- NOTE | 2018-01-04 08:42 | XRAY ---
Indication: Leg swelling. Comparison: October 23, 2015. PA/lateral chest again demonstrates normal heart and lungs with a few incidental calcified granulomas. Bony thorax intact again with mild degenerative changes. No new/acute findings.
== END 2018-01-03 22:06 | disposition home or self-care (01) ==
LOC: ED 18:15
DX: R60.0 Localized edema (principal); L03.115 Cellulitis of right lower limb; L03.116 Cellulitis of left lower limb; Z79.899 Other long term (current) drug therapy
CPT/HCPCS: 36000; 36415; 71046; 80053; 82962; 83880; 84484; 85025; 93041; 96374; 99284; J1940; A9270-GY

== ENCOUNTER 2020-05-23 10:51 | Day surgery (SDC) | payer MEDICARE ==
[2020-05-23] MEDS ORDERED: Depo-Medrol 40 MG/ML IM ONE (10:52)
[2020-05-23] MEDS ORDERED: BUPIVACAINE 0.5% VIAL IJ ONE (10:52)
[2020-05-23] MEDS ORDERED: Ketamine HCl 50 MG/ML ONE (12:26)
[2020-05-23] MEDS ORDERED: DIPRIVAN 200 MG/20 ML IV ONE (12:26)
--- NOTE | 2020-05-23 14:07 | XRAY ---
Indication: Left SI joint injection. Intraoperative fluoroscopy was provided for 13 seconds. 2 digital spot images submitted for interpretation demonstrates posterior needle tip projecting over the inferior left SI joint. Correlate with intraoperative findings/report.
--- NOTE | 2020-05-23 14:07 | XRAY ---
Indication: Left greater trochanter bursa injection. Intraoperative fluoroscopy was provided for seconds. Single digital spot image obtained prone demonstrates needle tip just lateral to the left greater trochanter. Small amount of contrast injected for needle tip placement. Correlate with intraoperative findings/report.
--- NOTE | 2020-05-23 14:09 | XRAY ---
13 seconds fluoroscopy time in surgery for left SI joint injection.
--- NOTE | 2020-05-23 14:19 | XRAY ---
6 seconds fluoroscopy time in surgery for injection of the bursa of the left hip.
[2020-05-23] MEDS ORDERED: Lactated Ringers 1,000 ML IV ONE (15:43)
== END 2020-05-23 12:55 | disposition home or self-care (01) ==
LOC: SDC-PAIN 10:51
PROVIDERS: ATTEND Psychiatry & Neurology Pain Medicine
DX: M46.1 Sacroiliitis, not elsewhere classified (principal); M16.12 Unilateral primary osteoarthritis, left hip; M06.9 Rheumatoid arthritis, unspecified; M41.9 Scoliosis, unspecified; Z79.899 Other long term (current) drug therapy
CPT/HCPCS: 20610; 72020; 73501; 77002; G0260; 27096; J1030; J2704; Q9966